=== PATIENT | male | born 1955 | race Caucasian/White ===

== ENCOUNTER 2019-01-19 09:59 | Observation (INO) | payer BC ==
[~2019-01-19 09:59] MED LIST: GLYCOPYRROLATE 0.4 MG INJ; NEOSTIGMINE 3 MG/3 ML SYRINGE; SEVOFLURANE 15 MIN
[2019-01-19] MEDS: LACTATED RINGER'S 1,000 ML IV* (10:00)
[2019-01-19] MEDS: CEFAZOLIN 2 GM/50 ML (PMX) 50 ML IVPB (10:00)
[2019-01-19] MEDS ORDERED: GELATIN SIZE 100 SPONGE (11:50)
[2019-01-19] MEDS ORDERED: BUPIVACAINE 0.25%/EPI (SDV) 30 ML INJ (11:50)
[2019-01-19] MEDS: BUPIVACAINE 0.5%/EPI (SDV) 30 ML INJ INJ (12:15)
[2019-01-19] MEDS: GELATIN COMPRESSED 100CM SPONGE TOP (12:15)
[2019-01-19] MEDS: THROMBIN 5000 UNIT VIAL TOP (12:15)
[2019-01-19] MEDS ORDERED: MIDAZOLAM 1 MG/ML 2 ML INJ (12:23)
[2019-01-19] MEDS ORDERED: FENTAnyl 50 MCG/ML VIAL (12:23)
[2019-01-19] MEDS ORDERED: AL HYDROX/MG HYDROX/SIMETH 30 ML CUP PO (12:30)
[2019-01-19] MEDS ORDERED: BISACODYL 10 MG SUPP PR (12:30)
[2019-01-19] MEDS ORDERED: HYDROmorphONE 0.5 MG/0.5 ML SYG IV (12:30)
[2019-01-19] MEDS ORDERED: ACETAMINOPHEN 325 MG TAB PO (12:30)
[2019-01-19] MEDS ORDERED: CYCLOBENZAPRINE 10 MG TAB PO (12:30)
[2019-01-19] MEDS ORDERED: DIPHENHYDRAMINE 50 MG INJ IV (12:30)
[2019-01-19] MEDS ORDERED: CEPASTAT LOZENGE MT (12:30)
[2019-01-19] MEDS ORDERED: NALOXONE (0.4 MG/ML) INJ IV (12:30)
[2019-01-19] MEDS ORDERED: ONDANSETRON 4 MG INJ IV ×2 (12:30→14:30)
[2019-01-19] MEDS ORDERED: DIPHENHYDRAMINE 25 MG CAP PO (12:30)
[2019-01-19] MEDS ORDERED: HYDROCODONE/APAP (10/325) TAB PO ×2 (12:30)
[2019-01-19] MEDS ORDERED: LIDOCAINE 2% (SDV) 5 ML INJ (12:35)
[2019-01-19] MEDS ORDERED: CEFAZOLIN 1 GM INJ (12:35)
[2019-01-19] MEDS ORDERED: ROCURONIUM 50 MG INJ (12:35)
[2019-01-19] MEDS ORDERED: PROPOFOL 20 ML (12:35)
[2019-01-19] MEDS ORDERED: SUCCINYLCHOLINE CHLORIDE 100 MG/5 ML SYG IV (12:35)
[2019-01-19] MEDS ORDERED: FAMOTIDINE 20 MG INJ (12:37)
[2019-01-19] MEDS ORDERED: DEXAMETHASONE 4 MG/ML 5 ML INJ (12:37)
[2019-01-19] MEDS ORDERED: ONDANSETRON 4 MG INJ (12:37)
[2019-01-19] MEDS ORDERED: HYDROmorphONE 2 MG/ML SYG (12:41)
[2019-01-19] MEDS ORDERED: BUPIVACAINE 0.25% (MPF) 30 ML INJ (13:15)
[2019-01-19] MEDS: BUPIVACAINE 0.25% (MPF) 30 ML INJ INJ (13:22)
[2019-01-19] MEDS: SURGIFOAM POWDER 1 GM KIT (13:36)
[2019-01-19] MEDS: THROMBIN (BOVINE) 5,000 UNIT VIAL TP (13:36)
[2019-01-19] MEDS: CA CHLORIDE 10% 10 ML SYRINGE (13:37)
[2019-01-19] MEDS: POLYMYXIN/BACITRACIN 1L IRRIG (13:37)
[2019-01-19] MEDS: BUPIVACAINE 0.25%/EPI (SDV) 30 ML INJ (13:38)
[2019-01-19] MEDS: HEPARIN 1000 UNITS/ML 10 ML INJ (13:38)
[2019-01-19] MEDS ORDERED: MEPERIDINE 25 MG INJ IV (14:30)
[2019-01-19] MEDS ORDERED: FENTAnyl 50 MCG/ML VIAL IV ×3 (14:30)
[2019-01-19] MEDS ORDERED: EPHEDrine SULFATE 50 MG/5 ML SYG IV (14:30)
[2019-01-19] MEDS ORDERED: HYDROmorphONE 1 MG/5 ML IV SYRINGE IV ×3 (14:30)
[2019-01-19] MEDS ORDERED: OXYCODONE/ACETAMINOPHEN (5/325) TAB PO (14:30)
[2019-01-19] MEDS ORDERED: PROCHLORPERAZINE 10 MG INJ IV (14:30)
[2019-01-19] MEDS ORDERED: hydrALAzine 20 MG INJ IV (14:30)
[2019-01-19] MEDS ORDERED: LABETALOL HCL 20MG INJ IV (14:30)
[2019-01-19] MEDS: DIPHENHYDRAMINE 50 MG INJ IV (15:10)
[2019-01-19] MEDS: D5W-0.45 NACL + KCL 20 MEQ 1,000 ML IV ×2 (15:57→22:07)
[2019-01-19] MEDS: CEFAZOLIN 1 GM/50 ML (PMX) 50 ML IVPB (17:43)
[2019-01-19] MEDS: DOCUSATE SODIUM 100 MG CAP PO (20:26)
[2019-01-19] MEDS: traMADol 50 MG TAB PO (20:26)
[2019-01-19] MEDS: METOPROLOL 25 MG TAB PO (20:27)
[2019-01-19] MEDS: CARISOPRODOL 350 MG TAB PO (21:55)
[2019-01-20] MEDS: CEFAZOLIN 1 GM/50 ML (PMX) 50 ML IVPB ×2 (01:51→10:36)
[2019-01-20 05:12] LABS: ADD MAN DIFF? NO
[2019-01-20] MEDS: D5W-0.45 NACL + KCL 20 MEQ 1,000 ML IV (05:18)
[2019-01-20 05:19] LABS: BASOPHILS % 0.1 % (0.0-2.0); HEMATOCRIT 40.2 % (42.0-52.0); LYMPHOCYTES # 1.7 10^3/ul (0.8-2.9); LYMPHOCYTES % 8.7 % (15.0-51.0); MEAN CORPUSCULAR HGB CONC 34.8 g/dl (32.0-37.0); MEAN CORPUSCULAR VOLUME 88.9 fl (82.0-101.0); MEAN PLATELET VOLUME 8.9 fl (7.4-10.4); MONOCYTE # 1.2 10^3/ul (0.3-0.9); MONOCYTES % 6.5 % (0.0-11.0); NEUTROPHILS % 84.1 % (39.0-77.0); PLATELET COUNT 268 10^3/UL (140-415); RED BLOOD COUNT 4.52 10^6/ul (4.70-6.10); RED CELL DISTRIBUTION WIDTH 12.4 % (11.5-14.5)
[2019-01-20 05:39] LABS: ANION GAP 4 (5-13); BLOOD UREA NITROGEN 15 mg/dl (7-20); CALCIUM 8.9 mg/dl (8.4-10.2); CARBON DIOXIDE 29 mmol/L (21-31); CHLORIDE 104 mmol/L (97-110); CREATININE 0.91 mg/dl (0.61-1.24); Estimated GFR > 60 mL/min (>60); GLUCOSE 150 mg/dl (70-220); MAGNESIUM 2.1 mg/dl (1.7-2.5); POTASSIUM 3.6 mmol/L (3.5-5.1); SODIUM 137 mmol/L (135-144)
[2019-01-20] MEDS: DOCUSATE SODIUM 100 MG CAP PO (09:05)
[2019-01-20] MEDS: traMADol 50 MG TAB PO ×2 (09:06→13:06)
[2019-01-20] MEDS: METOPROLOL 25 MG TAB PO ×2 (09:07→13:33)
[2019-01-20] MEDS: POTASSIUM CHLORIDE (SR) 10 MEQ TAB PO (10:37)
[2019-01-20] MEDS: CARISOPRODOL 350 MG TAB PO (10:37)
== END 2019-01-20 16:00 | disposition home or self-care (01) ==
LOC: SDS 09:59 → MS1 15:49 → SDS 15:47 → REC 15:47 → MS1 20:13
DX: M43.17 Spondylolisthesis, lumbosacral region (principal); M54.16 Radiculopathy, lumbar region; I10 Essential (primary) hypertension
CPT/HCPCS: 63030; 72020; 80048; 83735; 85025; 86999; 88304; 97116; 97161; 97530